=== PATIENT | male | born 1955 | race Caucasian/White ===

== ENCOUNTER 2020-07-23 01:22 | Outpatient (CLI) | payer MEDICARE, SELFPAY ==
[2020-07-23 19:02] LABS: SARS-CoV-2 RNA PCR Negative
== END 2020-07-23 01:23 | disposition home or self-care (01) ==
LOC: ANHCOVIDDT 01:23
PROVIDERS: Visit Provider Surgery Plastic and Reconstructive Surgery
DX: Z01.812 Encounter for preprocedural laboratory examination (principal); Z20.828 Contact with and (suspected) exposure to other viral communicable diseases
CPT/HCPCS: 87635; C9803; U0003

== ENCOUNTER 2020-07-23 08:14 | Outpatient (CLI) | payer MEDICARE, SELFPAY ==
--- NOTE | 2020-07-23 08:15 | ECG_ITS ---
Measurements Intervals [place] Rate: 53 P: 2 GA: 194 QRS: -8 QRSD: 102 T: 15 QT: 429 QTc: 404 Interpretive Statements SINUS BRADYCARDIA DELAYED PRECORDIAL R/S TRANSITION INFERIOR INFARCT, AGE INDETERMINATE ABNORMAL ECG Electronically Signed On 07-23-2020 8:35:22 CDT by Kosta Deluca D.O.
[2020-07-23 09:18] LABS: INR 1.2; Prothrombin Time 14.4 Seconds (11.1-14.7)
[2020-07-23 09:22] LABS: Anion Gap 7 mmol/L (8-16); Blood Urea Nitrogen 27 mg/dL (9-20); Calcium 9.2 mg/dL (8.4-10.2); Carbon Dioxide 32 mmol/L (22-30); Chloride 103 mmol/L (98-107); Estimated Glomerular Filt Rate > 60; Glucose 115 mg/dL (75-110); Sodium 142 mmol/L (137-145)
== END 2020-07-23 08:15 | disposition home or self-care (01) ==
PROVIDERS: Anesthesiology; Visit Provider Surgery Plastic and Reconstructive Surgery
DX: Z01.818 Encounter for other preprocedural examination (principal); I21.19 ST elevation (STEMI) myocardial infarction involving other coronary artery of inferior wall; R94.31 Abnormal electrocardiogram [ECG] [EKG]; I25.10 Atherosclerotic heart disease of native coronary artery without angina pectoris; I10 Essential (primary) hypertension; R00.1 Bradycardia, unspecified
CPT/HCPCS: 36415; 80048; 85610; 85730; 87635; 93005; C9803; U0003

== ENCOUNTER 2020-07-25 01:05 | Day surgery (SDC) | payer MEDICARE, SELFPAY ==
[2020-07-19 13:01] VITALS: BMI 29.5
--- NOTE | 2020-07-24 12:46 | WPDANESEPPF ---
Anes - Initial Pre Proc Eval Procedure: Operation Date: 07/25/20 12:00 Proposed Procedures p Excision Of Basal Cell Carcinoma Right Lower Eyelid With Frozen Section And Appropriate Closure - Carrington Stokes MD Date/Time: 07/24/20 12:46 Surgeon: Carrington Stokes MD Pre Op Diagnosis: Basal Cell Carcinoma Patient Data Age: 65 Gender: M Height: 1.78 m Weight: 93.2 kg Allergies Allergy/AdvReac Type Severity Reaction Status Date / Time rosuvastatin Allergy Unknown Verified 07/25/20 10:13 simvastatin Allergy Unknown Verified 07/25/20 10:13 Home Medications Medication Instructions Recorded Confirmed Type aspirin 81 mg tablet,delayed 81 mg PO DAILY 07/15/20 07/25/20 History release hydrochlorothiazide 25 mg tablet 25 mg PO DAILY 07/15/20 07/19/20 History levothyroxine 75 mcg tablet 75 mcg PO DAILY 07/15/20 07/19/20 History metoprolol tartrate 75 mg tablet 75 mg PO BID 07/15/20 07/19/20 History pravastatin 20 mg tablet 20 mg PO DAILY 07/15/20 07/19/20 History warfarin 2 mg tablet 2 mg PO DAILY 07/15/20 07/25/20 History ECG: Date of Service: 07/23/20 Procedure(s): CA 12 lead EKG Accession Number(s): [id number] cc: ~ Measurements Intervals [place] Rate: 53 P: 2 DE: 194 QRS: -8 QRSD: 102 T: 15 QT: 429 QTc: 404 Interpretive Statements SINUS BRADYCARDIA DELAYED PRECORDIAL R/S TRANSITION INFERIOR INFARCT, AGE INDETERMINATE ABNORMAL ECG Electronically Signed On 07-23-2020 8:35:22 CDT by Kosta Deluca D.O. Dictated By: Kosta Deluca DO 07/23/20 0853 Patient hx anesthesia problems: none Family hx anesthesia problems: none PMFSH Past Medical History Medical History (Updated 07/24/20 @ 12:48 by Young Ortiz MD) Afib Basal cell carcinoma (BCC) of right lower eyelid BCC (basal cell carcinoma of skin) CAD (coronary artery disease) High cholesterol Hypertension Hypothyroidism Melanoma Overweight (BMI 25.0-29.9) Surgical History Surgical History (Updated 07/24/20 @ 12:48 by Young Ortiz MD) History of cardiac radiofrequency ablation (RFA) 06/2017 History of coronary artery bypass graft 09/2017 S/P CABG (coronary artery bypass graft) Family History Family History (Updated 07/15/20 @ 08:03 by Lisa Uriarte CMA) Mother Heart disease Kidney disease Father Cancer Social History Social History (Updated 07/15/20 @ 08:03 by Lisa Uriarte CMA) Smoking status: Never smoker Alcohol intake: current Substance use: never Living arrangements: with family Spiritual care concerns: No Anes - Eval Final PreProcedure Day of Procedure 07/24/20 12:46 Patient weight: overweight Heart: regular rate and rhythm Lungs: clear to auscultation and normal air movement Airway: Mallampati scale class II Neurological: alert and oriented Last oral intake: >/= 8 hours ASA classification: III Emergent: no Anesthetic plan: proceed Anesthesia type and monitoring: general LMA and ETT Informed Consent: The patient's anesthetic plan and its attendant risks and benefits were discussed with the patient/family/POA. Questions were solicited and answers provided to the satisfaction of the patient/family/POA.
[2020-07-25] VITALS (7 sets, daily range): BP systolic 112–126; BP diastolic 66–82; PULSE 51–73; RESP 10–18; TEMP 36.3–36.6; O2SAT 98–100
[2020-07-25] MEDS: LACTATED RINGERS 1,000 ML 30 ML IV CONT (10:29)
--- NOTE | 2020-07-25 11:46 | WPDHPUPDATE1 ---
History and Physical Update Update Date/Time: 07/25/20 11:46 History and Physical has been reviewed, including an updated exam of the patient. There are NO changes in the patient's condition. Risks, benefits, and alternatives have been discussed and questions answered. Patient agrees to proceed with procedure.
[2020-07-25] MEDS: ceFAZolin 2 GM/D5W 50 ML 2 GM/50 ML BAG IVPB (12:00)
[2020-07-25] MEDS: LIDO 1%/EPINEPHRINE 1:100,000 20 ML VIAL INFILTRATE (12:37)
[2020-07-25] MEDS: TETRACAINE HCL 0.5% OPHTH SOLN 4 ML BTL 1 DROP EACH EYE (12:38)
--- NOTE | 2020-07-25 13:01 | PM.PROC ---
Procedure Note - Detailed Date of procedure: 07/25/20 Pre-op diagnosis: Basal Cell Carcinoma Post-op diagnosis: same Procedure performed: 1. Excision BCC right lower lid 0.6 cm 2. Complex closure of right lower lid 0.8 cm Description of procedure: Patient was marked in the preoperative holding area with his verification. He was taken to the operating room placed supine on the operating room table. Anesthesia provided by anesthesiology and prepped and draped in a standard sterile fashion. Surgical time-out was taken. Tetracaine eyedrops were used with BSS and then I placed corneal protectors. 1% lidocaine and 0.25% Marcaine with epinephrine was used anesthetize locally. I excised a wedge of the lid and this was sent to pathology. Once we had clear margins per pathology her repaired the lower lid. The tarsal plate was repaired with 5 0 Vicryl. This was followed by 6 0 nylon. I tied the nylon so the tails were tied over the next suture to help protect the eye. Bacitracin ophthalmic was placed. He tolerated well. I did remove the corneal protector. Anesthesia: GETA Surgeon: Carrington Stokes MD Estimated blood loss (mL): 5 Drains: No Packing: No Pathology: yes (BCC right lower lid.) Complications: No immediate complications Condition: stable Disposition: PACU
== END 2020-07-25 14:34 | disposition home or self-care (01) ==
PROVIDERS: Visit Provider Surgery Plastic and Reconstructive Surgery
PROC: (CPT 11641; principal; 2020-07-25 12:00)
DX: C44.1122 Basal cell carcinoma of skin of right lower eyelid, including canthus (principal); I48.91 Unspecified atrial fibrillation; I25.10 Atherosclerotic heart disease of native coronary artery without angina pectoris; E78.00 Pure hypercholesterolemia, unspecified; E03.9 Hypothyroidism, unspecified; Z95.1 Presence of aortocoronary bypass graft; Z79.01 Long term (current) use of anticoagulants
CPT/HCPCS: 11641; 12051; 88305; 88331; A9270; J0690; J1100; J2250; J2405; J2704; J3010; J7120